=== PATIENT | female | born 1940 | race Caucasian/White ===

== ENCOUNTER 2019-03-27 11:00 | Emergency (ER) | payer OTHER ==
[2019-03-27 11:04] VITALS: BMI 30.1
--- NOTE | 2019-03-27 11:13 | PDOC ---
History of Present Illness - General Chief Complaint: Respiratory Stated Complaint: FEVER,CHILLS,VOMITING Time Seen by Provider: 03/27/19 11:06 History Source: Patient Exam Limitations: No Limitations - History of Present Illness Initial Comments: 03/27/19 11:06 78 yo F presenting to the ER with a complaint of intractable vomiting Pt flew in from [place] 2 days ago Yesterday evening after dinner, pt began vomiting Pt estimates she has vomiting approximately 10 times, non bloody, non bilious ( now pt just vomiting liquids) Temperature checked yesterday noted to b 100 No ill contacts No Diarrhea at all Pt does not think she ate spoiled food, no raw shell fish, no under cooked meat No chest pain No shortness of breath No diaphoresis PMH: Afib, HTN PSH: denies Meds: Metoprolol, Coumadin ALL: NKDA Social: My Review of Systems GENERAL/CONSTITUTIONAL: Yes: fever, chills, weakness, loss of appetite. HEAD, EYES, EARS, NOSE AND THROAT: No: change in vision, ear pain, discharge, sore throat, throat swelling. CARDIOVASCULAR: No: chest pain, lightheadedness, palpitations, syncope RESPIRATORY: No: cough, shortness of breath, wheezing. GASTROINTESTINAL: Yes: nausea, vomiting, abdominal pain No: diarrhea, rectal bleeding, constipation. GENITOURINARY: No: dysuria, hematuria, frequency, urgency, flank pain. MUSCULOSKELETAL: No: back pain, neck pain, joint pain, muscle swelling or pain SKIN AND BREASTS: No: lesions, pallor, rash or easy bruising. NEUROLOGIC: No: headache, vertigo, paresthesias, weakness ENDOCRINE: No: unexplained weight gain or loss HEMATOLOGIC/LYMPHATIC: No: anemia, easy bleeding, swelling nodes My limited Exam GENERAL: The patient is in no acute distress. HEAD: Normal EYES: PERRLA, EOMI, sclera anicteric, conjunctiva clear. ENT: Ears normal, nares patent, oropharynx clear without exudates. Dry mucous membranes. NECK: Normal range of motion, supple LUNGS: Breath sounds equal, clear to auscultation bilaterally. No wheezes, and no crackles. HEART:Regular rate and rhythm, normal S1 and S2 without murmur, rub or gallop. ABDOMEN: Soft, nontender, normoactive bowel sounds. No guarding, no rebound. EXTREMITIES: Normal range of motion, no edema. NEUROLOGICAL: Cranial nerves II through XII grossly intact. Normal speech. No focal neurological deficits. MUSCULOSKELETAL: Back non-tender to palpation, no CVA tenderness SKIN: Warm, Dry, normal turgor, no rashes or lesions noted. 03/27/19 11:09 Past History - Past Medical History Allergies/Adverse Reactions: Allergies Allergy/AdvReac Type Severity Reaction Status Date / Time No Known Allergies Allergy Verified 03/27/19 11:01 Home Medications: Ambulatory Orders Atorvastatin Ca [Lipitor] 40 mg PO HS 03/27/19 Cephalexin Monohydrate [Keflex -] 500 mg PO BID #10 capsule 03/27/19 Diclofenac Sodium 1% Gel BID PRN 03/27/19 Levothyroxine [Synthroid -] 25 mcg PO DAILY 03/27/19 Metoprolol Tartrate [Lopressor -] 25 mg PO DAILY 03/27/19 Omeprazole 20 mg PO DAILY 03/27/19 Ondansetron HCl [Zofran] 4 mg PO BID PRN #10 tablet 03/27/19 Warfarin Sodium [Coumadin] 2.5 mg PO ASDIR 03/27/19 traMADol HCL [Ultram] 50 mg PO Q6H PRN 03/27/19 - Psycho Social/Smoking Cessation Hx Smoking History: Never smoked Hx Alcohol Use: No Drug/Substance Use Hx: No *Physical Exam - Vital Signs Last Vital Signs Temp Pulse Resp BP Pulse Ox 97.7 F 72 19 138/72 96 03/27/19 11:01 03/27/19 11:01 03/27/19 11:01 03/27/19 11:01 03/27/19 11:01 ED Treatment Course - LABORATORY CBC & Chemistry Diagram: 03/27/19 11:30 03/27/19 11:30 Medical Decision Making - Medical Decision Making 03/27/19 11:12 78 yo F presenting with intractable vomiting DD: SBO, Gastritis, biliary pathology, pancreatitis, CAD Will do: Labs ICF Anti emetics CT abd and pelvis Re Assess 03/27/19 11:36 EKG: NSR rate of 87 bpm, axis nml, intervals nml, no st elevation or depression , t waves upright 03/27/19 12:41 Laboratory Tests 03/27/19 03/27/19 03/27/19 11:30 11:30 11:30 WBC 7.5 Hgb 13.9 Hct 42.2 Plt Count 248 Troponin I < 0.03 Total Amylase 56 03/27/19 13:35 Laboratory Tests 03/27/19 03/27/19 03/27/19 11:30 11:30 11:30 Sodium 131 L Potassium 3.5 Chloride 105 Carbon Dioxide 21 BUN 17.0 Creatinine 0.8 Random Glucose 126 H Total Amylase 56 Lipase 106 03/27/19 14:36 Laboratory Tests 03/27/19 03/27/19 03/27/19 11:30 11:30 11:30 WBC 7.5 Hgb 13.9 Hct 42.2 Plt Count 248 BUN 17.0 Creatinine 0.8 Creatine Kinase 98 Troponin I < 0.03 Urine Blood Urine Nitrite Ur Leukocyte Esterase Urine RBC Urine WBC Ur Transition Epith Cell Urine Bacteria 03/27/19 13:56 WBC Hgb Hct Plt Count BUN Creatinine Creatine Kinase Troponin I Urine Blood 1+ H Urine Nitrite Positive H Ur Leukocyte Esterase 1+ Urine RBC 2-5 Urine WBC 5-10 Ur Transition Epith Cell Few Urine Bacteria Many CT: no acute intra abdominal pathology Possible UTI Will give Keflex Will also give Zofran 03/27/19 14:40 03/27/19 14:40 Clinical impression: gastroenteritis, initial presentation UTI, initial presentation Discharge - Discharge Information Problems reviewed: Yes Clinical Impression/Diagnosis: Gastroenteritis UTI (urinary tract infection) Qualifiers: Urinary tract infection type: site unspecified Hematuria presence: without hematuria Qualified Code(s): N39.0 - Urinary tract infection, site not specified Condition: Fair Disposition: HOME - Admission No - Follow up/Referral - Patient Discharge Instructions Patient Printed Discharge Instructions: DI for Urinary Tract Infection (UTI), DI for Viral Gastroenteritis -- Adult, Gastroenteritis Diet Additional Instructions: Ms Abraham Thank you for coming into the ER today. Your work up showed possibly a UTI. You may take Tylenol or Motrin as needed for pain. You must follow up with your primary care physician within 24-48 hours. Go to the emergency room if any new or worsening symptoms develop. Clear liquids only for the next 6 hours.. After that if you have had no further vomiting you may have bananas, rice, applesauce, or toast. If no further vomiting for another 8 hours you may have regular food. If you vomit again then nothing to eat or drink for 2 hours. Then start back with the clear liquids. Return to the emergency department immediately with ANY new, persistent or worsening symptoms. You MUST call and follow up with your doctor tomorrow if not better. Please make sure your doctor reviews the results of your emergency evaluation. - Post Discharge Activity
[2019-03-27] MEDS ORDERED: SODIUM CHLORIDE 1,000 ML IV STA (11:37)
[2019-03-27] MEDS ORDERED: ONDANSETRON 4 MG/2 ML VIAL IVPUSH ONE (11:37)
[2019-03-27 11:54] LABS: HEMATOCRIT 42.2 % (32.4-45.2); HEMOGLOBIN 13.9 GM/dl (10.7-15.3); MCH 29.6 pg (25.7-33.7); MCHC 32.9 g/dl (32.0-36.0); MEAN CELL VOLUME 89.9 fl (80-96); PLATELET COUNT 248 K/MM3 (134-434); RBC 4.69 M/mm3 (3.60-5.2); WHITE BLOOD COUNT 7.5 K/mm3 (4.0-10.8)
[2019-03-27 12:03] LABS: ALBUMIN 3.6 g/dl (3.4-5.0); BILIRUBIN,TOTAL 0.8 mg/dl (0.2-1); CALCIUM 8.1 mg/dl (8.5-10); CREATININE 0.8 mg/dl (0.55-1.3); TOT PROT 6.8 g/dl (6.4-8.2)
[2019-03-27] MEDS ORDERED: ONDANSETRON 4 MG/2 ML VIAL ONE (12:03)
[2019-03-27 13:19] LABS: POTASSIUM 3.5 mmol/L (3.5-5.1)
[2019-03-27 14:24] LABS: EPITHELIAL CELLS FEW /hpf
[2019-03-27 15:11] VITALS: BP 108/58; PULSE 76; TEMP 98.3
--- NOTE | 2019-03-28 14:32 | EKG ---
Test Reason : Blood Pressure : / mmHG Vent. Rate : 087 BPM Atrial Rate : 087 BPM P-R Int : 174 ms QRS Dur : 088 ms QT Int : 372 ms P-R-T Axes : -14 -01 -07 degrees QTc Int : 447 ms NORMAL SINUS RHYTHM NONSPECIFIC ST AND T WAVE ABNORMALITY NO PREVIOUS ECGS AVAILABLE Confirmed by ROSARIO GOLD MD ([id number]) on 03/28/2019 2:32:14 PM Referred By: LINH GONZALES Confirmed By:ROSARIO GOLD MD
== END 2019-03-27 15:41 | disposition home or self-care (01) ==
LOC: FER 11:00
PROC: 3E033GC Introduction of Other Therapeutic Substance into Peripheral Vein, Percutaneous Approach (ICD-10-PCS; principal; 2019-03-27)
PROC: 3E0337Z Introduction of Electrolytic and Water Balance Substance into Peripheral Vein, Percutaneous Approach (ICD-10-PCS; 2019-03-27)
DX: N39.0 Urinary tract infection, site not specified (principal); K52.9 Noninfective gastroenteritis and colitis, unspecified; I10 Essential (primary) hypertension; I48.91 Unspecified atrial fibrillation; Z79.01 Long term (current) use of anticoagulants
CPT/HCPCS: 36415; 74177-TC; 80053; 81003; 81015; 82150; 82550; 83690; 84484; 85027; 87086; 93005; 99283-25; J7030